=== PATIENT | male | born 1950 | race Caucasian/White ===

== ENCOUNTER 2019-09-06 12:03 | Emergency (ER) | payer MEDICARE, OTHER, SELFPAY ==
--- NOTE | 2019-09-06 12:15 | ED_ITS ---
HPI - Extremity Injury (Upper) <Abigail King PA-C - Last Filed: 09/06/19 17:50> General Chief Complaint: Extremity Injury, Upper Stated Complaint: fell,injured finger right hand Time Seen by Provider: 09/06/19 12:15 Source: patient Mode of arrival: Ambulatory Limitations: no limitations History of Present Illness HPI narrative: This 69-year-old male comes to ED secondary to right ring finger injury. He states he was hiking on mouth. This morning when he slipped on a slick rock, feet went out from under him and fell on his bottom. He states that he slid down and caught and thinks he jammed his finger on a rock. He states this is painful, not numb or tingly. Does not feel weakness. He denies any head contusion, LOC, any other pain or injury. Related Data Previous Rx's Medication Instructions Recorded cephalexin 500 mg PO QID #20 cap 09/06/19 Allergies Allergy/AdvReac Type Severity Reaction Status Date / Time No Known Drug Allergies Allergy Verified 09/06/19 12:23 Review of Systems <Abigail King PA-C - Last Filed: 09/06/19 17:50> Review of Systems ROS Unobtainable: All systems reviewed & are unremarkable except as noted in HPI and below Patient History <Abigail King PA-C - Last Filed: 09/06/19 17:50> Medical History (Updated 09/06/19 @ 13:47 by Abigail King PA-C) Anxiety and depression (Chronic) Surgical History (Updated 09/06/19 @ 13:19 by Abigail King PA-C) No pertinent past surgical history (Chronic) Social History Smoking Status: Never smoker Exam <Abigail King PA-C - Last Filed: 09/06/19 17:50> Initial Vital Signs Initial Vital Signs: Vital Signs Temperature 97.0 F L 09/06/19 12:16 Pulse Rate 57 L 09/06/19 12:16 Respiratory Rate 18 09/06/19 12:16 Blood Pressure 112/76 09/06/19 12:16 Pulse Oximetry 99 09/06/19 12:16 GENERAL APPEARANCE: Patient sitting comfortably, in no distress. LUNGS: Clear to auscultation bilaterally. HEART: Rate and rhythm regular without murmur, normal S1 and S2, no S3 or S4. MUSCULOSKELETAL: Right ring finger there appears to be a distal dislocation, tender around the DIP, no point tenderness elsewhere around the right forearm, wrist, metacarpals or fingers. Strength in the fingers appears to be intact in all dye aside from testing at the distal ring finger DERMATOLOGIC: 1.5 cm long laceration at the anterior DI P border, tendon is visible, appears intact <Travon Metcalf DO - Last Filed: 09/06/19 19:01> Initial Vital Signs Initial Vital Signs: Vital Signs Temperature 97.0 F L 09/06/19 12:16 Pulse Rate 57 L 09/06/19 12:16 Respiratory Rate 18 09/06/19 12:16 Blood Pressure 112/76 09/06/19 12:16 Pulse Oximetry 99 09/06/19 12:16 <DO Ankit Gonzalez Last Filed: 09/06/19 19:01> Laceration Repair Laceration 1: Site: upper extremity Side (If applicable): right Size (cm): 1 Description: linear Depth: involves muscle layer Local Anesthetic: other anesthetic Pre-repair: wound explored, irrigated extensively and deep structures intact (Laceration viewed in a bloodless field and tendon glide noted. Patient has full strength) Skin layer closed with: nylon Size (cm): 5-0 Technique: simple, interrupted Nerve Block Nerve Block 1: Local Anesthetic: bupivacaine 0.25% Amount of anesthesia used (mL): 3 Side: right Nerve Blocks: digital Procedure Successful: Yes Patient Tolerated Procedure: Well Complications: none Orthopedic Joint Reduction Joint #1: Side: right Joint Reduction Location: finger Analgesia: nerve block Local Anesthesia: bupivacaine 0.25% Amount of anesthesic used (mL): 3 Technique used: traction/counter-traction and direct manipulation Post-reduction neuro exam: intact Post-reduction vascular: intact Post Reduction X-Ray Obtained: No Splint Applied: Yes Patient Tolerated Procedure: Well Course <Abigail King PA-C - Last Filed: 09/06/19 17:50> Course Additional Information: Patient has dislocation with laceration and exposed tendon, no fracture. This was examined, reduced and sutured by Dr. Metcalf (see his procedure note) Orders Ordered: ED Orders 09/06/19 12:13 XR hand RT min 3V Stat Discontinued Medications Acetaminophen (Tylenol) 650 mg PO NOW ONE Stop: 09/06/19 12:35 Last Admin: 09/06/19 12:39 Dose: 650 mg Documented by: ERON Bupivacaine HCl (Sensorcaine 0.5% (Pf)) 5 ml SUBCUT NOW ONE Stop: 09/06/19 12:55 Last Admin: 09/06/19 13:28 Dose: 5 ml Documented by: ERON Vital Signs Vital signs: Vital Signs - 8 hr 09/06/19 12:16 09/06/19 13:58 Temperature 97.0 F L Pulse Rate 57 L 56 L Respiratory Rate 18 Blood Pressure 112/76 127/87 Pulse Oximetry 99 <Travon Mectalf DO - Last Filed: 09/06/19 19:01> Orders Ordered: ED Orders 09/06/19 12:13 XR hand RT min 3V Stat Discontinued Medications Acetaminophen (Tylenol) 650 mg PO NOW ONE Stop: 09/06/19 12:35 Last Admin: 09/06/19 12:39 Dose: 650 mg Documented by: ERON Bupivacaine HCl (Sensorcaine 0.5% (Pf)) 5 ml SUBCUT NOW ONE Stop: 09/06/19 12:55 Last Admin: 09/06/19 13:28 Dose: 5 ml Documented by: ERON Vital Signs Vital signs: Vital Signs - 8 hr 09/06/19 12:16 09/06/19 13:58 Temperature 97.0 F L Pulse Rate 57 L 56 L Respiratory Rate 18 Blood Pressure 112/76 127/87 Pulse Oximetry 99 MDM - Extremity Injury (Upper) <Abigail King PA-C - Last Filed: 09/06/19 17:50> Imaging Data hand: Radiologist's Impression: 15 Abigail King PA-C Find Patient Imaging - Portillo Yatesic T 69 M 1950 ACTIVITY DATE EXAM STATUS AUTHOR 09/06/19 12:[address] [address] XRay Report Signed Patient: Pacheco Yates TMR#: [id number] : 1950cct:[id number] Age/Sex: 69 / MDate of Service: 09/06/19 Loc: ED Accession Number: [id number] Procedure: XR hand RT min 3V Ordering Provider: Travon Metcalf D.O. PROCEDURE: XR HAND RT MIN 3V INDICATIONS: fell while hiking TECHNIQUE: 3 views of the hand(s) acquired. COMPARISON: None. FINDINGS: Bones: There is a dorsal dislocation of the distal phalanx of the 4th right di git with respect to the middle phalanx. No definitive fractures are appreciated. Otherwise, the remainder of the image osseous structures of the hand are intact and unremarkable. Soft tissues: There appears to be a skin laceration on the volar aspect of the distal interphalangeal joint of the 4th digit. There appears to be contained within the joint space. No radiopaque foreign bodies. IMPRESSION: 1. Dorsal dislocation of the distal phalanx of the 4th right digit. No definite fractures. 2. Apparent soft tissue laceration adjacent to the distal interphalangeal joint of the 4th digit with possible air within the joint space. Please correlate clinically for an open wound. No foreign bodies are evident. Dictated by: Ralph Clark M.D. on 09/06/2019 at 11:53 Approved by: Ralph Clark M.D. on 09/06/2019 at 11:55 Discharge Plan Departure Patient Disposition: Home Clinical Impression: Dislocation of finger, interphalangeal joint, right, open Qualifiers: Encounter type: initial encounter Qualified Code(s): S63.279A - Dislocation of unspecified interphalangeal joint of unspecified finger, initial encounter Laceration of finger, right, complicated Qualifiers: Encounter type: initial encounter Qualified Code(s): S61.219A - Laceration without foreign body of unspecified finger without damage to nail, initial encounter Discharge Date/Time: 09/06/19 13:58 Instructions: DI for Finger Dislocation, DI for Laceration Repair -- Finger Activity Restrictions/Additional Instructions: Please keep the splint and dressing on your finger. You can remove it and leave it open to air if you are just sitting and not using your hand for a bit, otherwise leave it on for protection so that you don't inadvertantly put strain on the sutures or wound. Start the antibiotic as soon as you pick it up. Please see your PCP next week as you have already planned for recheck, and sutures may be ready to removed by then or may need to stay in a little bit longer. As we talked about, if there is any sign of infection such as fever, spreading redness, draining pus or increasing pain in the interim, you should be seen right away either by your PCP or you can return to the ED here. Discussed whether you should see Orthopedics with your PCP when you follow-up next week. Prescriptions: New cephalexin 500 mg capsule 500 mg PO QID Qty: 20 RF: 0 Referrals: Arabella Rick [Other]
[2019-09-06 12:16] VITALS: BP 112/76; PULSE 57; RESP 18; TEMP 36.1; O2SAT 99; BMI 24.3
--- NOTE | 2019-09-06 12:26 | PC.NURSE ---
patient has good CMS, finger appears dislocated
[2019-09-06] MEDS: ACETAMINOPHEN 325 MG TABLET 650 MG PO (12:39)
[2019-09-06] MEDS: BUPIVACAINE 0.5% (PF) VIAL 5 ML SUBCUT (13:28)
--- NOTE | 2019-09-06 13:47 | PC.NURSE ---
bulky finger dressing with aluminum splint.
[2019-09-06 13:58] VITALS: BP 127/87; PULSE 56
== END 2019-09-06 13:58 | disposition home or self-care (01) ==
PROVIDERS: Emergency Provider Internal Medicine
DX: S63.279A Dislocation of unspecified interphalangeal joint of unspecified finger, initial encounter (principal); S61.219A Laceration without foreign body of unspecified finger without damage to nail, initial encounter; W19.XXXA Unspecified fall, initial encounter
CPT/HCPCS: 12041; 26770; 64450; 73130; 99284